=== PATIENT | female | born 1995 | race Caucasian/White ===

== ENCOUNTER 2020-06-05 18:18 | Emergency (ER) | payer OTHER, SELFPAY ==
[2020-06-05 18:20] VITALS: BP 145/124; PULSE 98; RESP 16; TEMP 37.2; O2SAT 96; BMI 43.7
--- NOTE | 2020-06-05 18:54 | CT_ITS ---
STUDY: CT ABDOMEN AND PELVIS WITH CONTRAST REASON FOR EXAM: Female, 25 years old. RLQ PAIN X ONE DAY/NAUSEA/MILD DIARRHEA RADIATION DOSAGE (If Supplied By Facility): CTDIvol = ( 17.00 ) mGy, DLP = ( 1271.90 ) mGycm TECHNIQUE: Transaxial images were obtained from the dome of the diaphragm to the symphysis pubis without oral contrast. IV 100mL Isovue-370 was administered. Sagittal and coronal images were reconstructed. Individualized dose optimization techniques were used for this CT. COMPARISON: None. FINDINGS: A small irregular pneumonic infiltrate is present in the posterior aspect of the left lower lobe. Normal liver. No intrahepatic biliary duct dilatation or liver mass. Normal gallbladder and extrahepatic biliary system. Normal spleen. Normal pancreas. Normal bilateral adrenal glands. Normal right kidney. Normal left kidney. No hydronephrosis or renal masses. No large stones. Normal visualized stomach. Normal small intestine. Normal colon. No bowel dilatation or obstruction. No free air or free fluid. The appendix is visualized and appears normal. Normal abdominal aorta. Normal inferior vena cava. Normal retroperitoneum. Normal urinary bladder. Unremarkable uterus and adnexa. Normal abdominal wall. Normal osseous structures. CT/Abdomen/Pelvis W IV Cont ONLY IMPRESSION: 1. Small left lower lobe pneumonic infiltrate. 2. No demonstrated acute or significant process of the abdomen and pelvis. 3. No visualized hydronephrosis 4. Normal appendix. Electronically Signed: Figueroa Urrutia MD at 20:08 EST , Service support ,
--- NOTE | 2020-06-05 18:55 | ED.DCSUM_ITS ---
- ER Visit Summary Date of Service: 06/05/20 Chief Complaint: Right lower quadrant abdominal pain History of Present Illness: The patient is a [address] of polycystic ovarian syndrome, ADHD and migraines. No prior abdominal surgery. Patient states around 2 PM yesterday started having right lower quadrant abdominal pain which been constant. Associated nausea no vomiting mild diarrhea. No dysuria no hematuria last menstrual period ended 2 days ago. No vaginal bleeding or discharge. No fever or chills. Said there is no way she could be . Has never had a kidney stone. Denies any abdominal trauma. Physical Examination: Young female no acute distress vital signs stable initial blood pressure elevated 145/124. HEENT exam unremarkable. Neck nontender. Lungs clear to auscultation bilaterally. Heart regular rhythm no murmur. Abdomen soft. Nondistended no peritoneal signs. Mild tenderness right lower quadrant only. No masses. No signs of obstruction. Right upper and left side abdomen completely nontender. Patient is moving all 4 extremities. No edema. Back nontender. Neurologically she is awake alert. Test Results: BC white count of 6 hemoglobin 14 no bands chemistries normal normal creatinine gap UA some microscopic blood and 2+ bacteria but otherwise negative serum test negative CT abdomen pelvis with IV contrast shows nothing acute in the abdomen. Normal appendix. Read by the radiologist reviewed by me. There was a questionable left lower lobe infiltrate I looked at the film I do not see any infiltrate and the patient has no respiratory symptoms I do not think this needs further treated or evaluated. Repeat exam the patient is doing well at 8:40 PM. Abdomen is benign. I have gone over all test results with him they can follow-up with the primary care physician for further evaluation. Emergency Department Course and Treatment: Young female right lower quadrant abdominal pain consider appendicitis versus stone versus [employer] etiology versus other. CAT scan labs being obtained. She did not want a thing for pain or nausea at this time. Treatment Plan: Tylenol and or Motrin for pain. Follow-up if not improving. Disposition: Discharge Impression: Acute right lower quadrant abdominal pain of uncertain etiology This note was generated with [employer] software. It may contain incorrect words, spelling, and punctuation that were not noted in review of the chart prior to signing ED Disposition - Plan for ED Patient: Referrals: NOT,DEFINED [NON-STAFF] -
[2020-06-05 19:07] LABS: Mucous, Urine 0 SEEN /hpf (<or=2+); Red Blood Cells-Urine 0 SEEN /hpf (0-5); Squamous Epithelial Cells - UA 0 SEEN /hpf (5-10); White Blood Cells 0 SEEN /hpf (0-5)
[2020-06-05 19:18] LABS: Color, Urine Yellow (Yellow); Glucose, Dipstick Normal (Normal); Ketone-Dipstick 5 mg/dl (Negative); Leukocyte Esterase-Dipstick Negative /ul (Negative); Nitrite-Dipstick Negative (Negative); Occult Blood-Urine 50 /ul (Negative); Protein-Dipstick Negative (Negative); Urine Bilirubin Dipstick Negative (Negative); Urine Clarity Clear (Clear); Urine Urobilinogen Normal (Normal); Urine pH 6.5 (5.0 - 8.0)
[2020-06-05] MEDS: 0.9% Normal Saline 1,000 ML 1000 ML IV (19:20)
[2020-06-05 19:28] LABS: Absolute Lymphocyte Count 1.17 X10^3/uL (0.83-4.51); Absolute Neutrophil Count 4.4 X10^3/uL (2.0-7.7); Basophil# 0.04 X10^3/uL; Basophil% 0.6 % (0-1); Eosinophil# 0.13 X10^3/uL; Hematocrit 44.2 % (37-47); Hemoglobin 14.1 g/dL (12.0-15.0); Lymphocyte # 1.17 X10^3/ul (4.0); Lymphocyte % 18.4 % (19-41); Mean Corp Hgb Conc 31.9 g/dL (32-36); Mean Corpuscular Hgb 26.9 pg (27.0-32.0); Mean Corpuscular Volume 84.2 fL (81-99); Mean Platelet Vol. 8.7 fl (6.2-12.0); Monocyte# 0.64 X10^3/uL; NRBC Flagged by Analyzer 0 % (0-5); Neutrophil # 4.37 X10^3/uL (2.7-7.7); Neutrophil % 68.7 % (47-70); Platelet Count 360 K/mm3 (150-450); RBC Distribution Width CV 13.2 % (11.6-14.6); RBC Distribution Width SD 41.2 fl (35.1-43.9); Red Blood Count 5.25 M/mm3 (4.2-5.4); White Blood Count 6.4 K/mm3 (4.4-11.0)
[2020-06-05 19:29] LABS: Bacteria 2+ /hpf (None Seen)
[2020-06-05 19:40] LABS: Internal QC Validated? YES +Cl - CLEAR BKGD; Pregnancy, Serum, hCG Quali. NEGATIVE Negative
[2020-06-05 19:44] LABS: Anion Gap 5 (5-15); BUN 6 mg/dL (7-18); BUN/Creat Ratio 7.3 RATIO (10-20); Calcium,Total 9.5 mg/dL (8.5-10.1); Chloride 107 mmol/L (98-107); Creatinine, Serum 0.82 mg/dL (0.55-1.02); EST Glomerular Filtration Rate 90 mL/min (>60); Est Glom Filt Rate - Afr Amer 109 mL/min (>60); Estimated Creatinine Clearance 101.99 ml/min; Glucose 79 mg/dL (74-106); Potassium 3.7 mmol/L (3.5-5.1); Sodium Level 138 mmol/L (136-145)
[2020-06-05 20:19] VITALS: BP 148/88
--- NOTE | 2020-06-05 20:42 | ED.DEP ---
ED Disposition - Plan for ED Patient: Disposition: Home or Assisted Living Instructions: ED Abdominal Pain Unkn Cause Fem Referrals: Amena Estrada MD [STAFF PHYSICIAN] - 1 Week if not improving Additional Instructions: Your labs and CAT scan are unremarkable. We do not have a specific cause for your pain. Tylenol and/or Motrin for pain. If not improving follow-up with a local [facility].
== END 2020-06-05 20:54 | disposition home or self-care (01) ==
PROVIDERS: Emergency Provider Emergency Medicine
DX: R10.31 Right lower quadrant pain (principal); R19.7 Diarrhea, unspecified; R11.0 Nausea; R03.0 Elevated blood-pressure reading, without diagnosis of hypertension; E28.2 Polycystic ovarian syndrome
CPT/HCPCS: 74177; 80048; 81001; 84703; 85025; 96360; 96361; 99285; J7030; Q9967; A4216